=== PATIENT | female | born 1930 | race Caucasian/White ===

== ENCOUNTER 2016-07-26 09:11 | Inpatient (IN) | payer MEDICARE, OTHER ==
[~2016-07-26] VITALS: Ht 160 cm; Wt 57.3 kg
[~2016-07-26 09:11] MED LIST: ASPIRIN81 MG PO; ELIQUIS2.5 MG PO; FERROUS SULFAT325 MG PO; FISH OIL 1,0001 CA1 PO; GLUCOPHAGE850 MG PO; HUMULIN R100 U/ML SC; HYDROCODON-ACE1 EAC7 PO; HYDROCODONE-APA1 TAB PO; LOVENOX30 MG/0.3 SC; METOPROLOL TART50 MG PO; OMEPRAZOLE20 M1 PO; TENORMIN25 MG PO; ZOLOFT50 MG PO; [UNRECOGNIZED DRUG - OTHER]
[2016-07-26 10:16] LABS: BASOPHILS 0.5 % (0.0-2.0); EOSINOPHILS 2.9 % (0-7); HEMATOCRIT 35.1 % (36.0-48.0); HEMOGLOBIN 11.2 g/dL (12-16); IMMATURE GRANULOCYTES 2.8 % (0-5); MCH 29.2 pg (26.0-34.0); MCHC 31.9 g/dL (31.0-37.0); MCV 91.4 fL (80.0-100.0); MEAN PLATELET VOLUME 8.6 fL (7.4-10.4); MONOCYTES 8.8 % (2-11); RBC 3.84 10x6/uL (4.00-5.40); RDW 14.2 % (11.5-14.5); WBC 9.6 10x3/uL (4.8-10.8)
[2016-07-26 10:19] LABS: PLATELET COUNT 374 10x3/uL (130-400)
[2016-07-26 10:36] LABS: ANION GAP 13.6 mmol/L (8-16); CALCIUM 9.2 mg/dL (8.5-10.1); CARBON DIOXIDE 27.7 mmol/L (21.0-32.0); CREATININE - SERUM 0.9 mg/dL (0.6-1.3); POTASSIUM - SERUM 4.3 mmol/L (3.5-5.1)
[2016-07-26 10:41] VITALS: BP 118/64; BMI 22.3
[2016-07-26] MEDS ORDERED: BACTRIM DS TABL1 TAB PO (11:25)
[2016-07-26] MEDS ORDERED: INVANZ 1 GM/NS 11 G1 IV (11:26)
--- NOTE | 2016-07-26 11:40 | NUR ---
1130 REPORTED PATIENT TOOK ELIQUS LAST NIGHT AT 2000 PER NURSE AT [facility] AND [facility] YESTERDAY TO SURGERY CHRISTINE
--- NOTE | 2016-07-26 15:29 | NUR ---
VANCOMYCIN 1GM INFUSING.
--- NOTE | 2016-07-26 15:45 | NUR ---
PASHA FERMENTER WINE WAS CALLED FOR A BED. NO BEDS AVAILABLE, HE STATED TO RETURN TO OUTPATIENT.
--- NOTE | 2016-07-26 16:00 | NUR ---
1550- RECEIVED PT FROM OR [facility]ERY. PT TO BE ADMITTED UPON AVAILABILITY OF AN IN HOUSE BED. SHE IS SUPINE WITH HOB ELEVATED. EYES CLOSED, BUT RESPONDS TO VERBAL STIMULI- EXTREMELY HARD OF HEARING. RIGHT HIP WITH WOUND VAC, SUCTION FUNCTIONING, PLUGGED INTO WALL. VSS. LEFT ARM IV INFUSING. ADULT BREIF IN PLACE. 1600- HEELS BRIDGED WITH PILLOW, ICE TO RIGHT HIP AREA. LIQUIDS OFFERED. WILL MONITOR UNTIL TRANSFERRED TO INPATIENT BED.
[2016-07-26 16:05] VITALS: BP 151/72
[2016-07-26 17:00] VITALS: BP 134/60
--- NOTE | 2016-07-26 17:06 | NUR ---
1700- PLACED ON BED CASAS PER REQUEST. VOIDED WITHOUT DIFFICULTY.
--- NOTE | 2016-07-26 17:35 | NUR ---
REPORT GIVEN TO DURGA BARONE. PT SLEEPING WITHOUT ANY COMPLAINTS AT THIS TIME. VSS. DIABETIC DINNER TRAY ORDERED.
--- NOTE | 2016-07-26 18:26 | NUR ---
1800 RESTING ONLY TOOK IN A FEW SIPS OF [place] DIET. WOUND VAC TO RT HIP TO 125MM HG CONTINUOUS SUCTION NO AIR LEAKS. EYES CLOSED BUT ROUSES. TRAY SERVED.
--- NOTE | 2016-07-26 18:44 | NUR ---
1835 1/2 N/S GOING IV NO REDNESS OR SWELLING RESTING WITH EYES CLOSED MEREPENUM STILL INFUSING. RT HIP WOUND VAC TO 125MM HG CONTINUOUS SUCTION AND NO AIR LEAKS.
--- NOTE | 2016-07-26 19:40 | NUR ---
1935 RESTING WITH EYES CLOSED. NO S/S OF GRIMACING. REPORT TO MARI DENNEY R.N. TO ROOM VIA STRETCHER.
[2016-07-27] VITALS: BP 110/82
[2016-07-27 03:02] VITALS: BP 159/72; Ht 160 cm; Wt 57.3 kg
[2016-07-27 04:00] VITALS: BP 139/69
[2016-07-27 06:53] LABS: HEMATOCRIT 35.4 % (36.0-48.0); HEMOGLOBIN 11.2 g/dL (12-16); MCH 29.2 pg (26.0-34.0); MCHC 31.6 g/dL (31.0-37.0); MCV 92.4 fL (80.0-100.0); MEAN PLATELET VOLUME 8.8 fL (7.4-10.4); RBC 3.83 10x6/uL (4.00-5.40); RDW 14.6 % (11.5-14.5); WBC 8.6 10x3/uL (4.8-10.8)
--- NOTE | 2016-07-27 08:00 | NUR ---
PT ASSESSMENT COMPLETE AWAKE AND ALERT ORINETED X 2 VERY HARD OF HEARING NO ACUTE DISTRESS NTOED WOUND VAC NOTED TO RIGHT HIP WOUND SIZE DOCUMENTED PER OR TEAM 20CM x 4CM x 6CM DEEP REDNESS NOTED AROUND WOUND AREA GRAM STAIN WAS POSITIVE FOR STAPH AREUS NON METHECILLIN RESISTANT. DENIES PAIN. PT HAD VERY INCONT EPISODE FULL BED CHANGE AND LINNEN CHANGE PER THIS NURSE AND GOLF COURSE MANAGER BED BATH GIVEN AT THIS TIME NO REDNESS NOTED TO BUTTOCKS SKIN INTACT OTHER THAN SURGICAL WOUND LUNGS CLEAR BILATERALLY BOWEL SOUNDS ACTIVE X 4 QUADS. CALL LIGHT INREACH SIDE RAILS UP X 2
[2016-07-27 09:10] VITALS: BP 186/64
[2016-07-27 11:14] LABS: BASOPHILS 0.6 % (0.0-2.0); EOSINOPHILS 3.1 % (0-7); HEMATOCRIT 34.6 % (36.0-48.0); HEMOGLOBIN 10.6 g/dL (12-16); IMMATURE GRANULOCYTES 2.6 % (0-5); LYMPHOCYTES 20.5 % (15-50); MCH 28.4 pg (26.0-34.0); MCHC 30.6 g/dL (31.0-37.0); MCV 92.8 fL (80.0-100.0); MEAN PLATELET VOLUME 8.7 fL (7.4-10.4); MONOCYTES 5.4 % (2-11); NEUTROPHILS 67.8 % (40-80); PLATELET COUNT 421 10x3/uL (130-400); RBC 3.73 10x6/uL (4.00-5.40); RDW 14.4 % (11.5-14.5)
[2016-07-27 11:32] LABS: ANION GAP 11.9 mmol/L (8-16); C-REACTIVE PROTEIN 2.7 mg/dL (0.0-0.9); CALCIUM 8.9 mg/dL (8.5-10.1); CARBON DIOXIDE 28.6 mmol/L (21.0-32.0); CREATININE - SERUM 0.9 mg/dL (0.6-1.3); POTASSIUM - SERUM 4.5 mmol/L (3.5-5.1)
--- NOTE | 2016-07-27 12:19 | NUR ---
NO ACUTE DISTRESS NOTED HAS ORDER FOR WOUND VAC AND POSSIBLE DISCHARGE BACK TO [facility] TODAY WILL MONITOR CURRENTLY INFUSING VANCOMYCIN PER ORDER WILL CONTINUE TO OBSERVE
[2016-07-27 12:23] LABS: ERYTHROCYTE SEDIMENTATION RATE 27 mm/hr (0-30)
[2016-07-27 13:04] VITALS: BP 121/62
--- NOTE | 2016-07-27 13:53 | NUR ---
PATIENT WILL DISCHARGE TODAY BACK TO [facility] BY FACILITY KATHI. SONI AT [facility] IS GETTING WOUND VAC ORDERED FOR PATIENT. NIECE NOTIFIED.
--- NOTE | 2016-07-27 15:15 | NUR ---
REPORT CALLED TO [facility] SPOKE WITH MALDONADO RODRIGEZ LPN
--- NOTE | 2016-08-13 18:23 | OP ---
PATIENT NAME: KLEBER GONZALEZ MEDICAL RECORD: [id number] :34 LOCATION:[facility] [id number] ADMISSION DATE:07/26/16 SURGEON: CARRIE GONSALVES MD DATE OF OPERATION: 07/26/2016 Orthopedic Surgery Operative Note PREOPERATIVE DIAGNOSIS: Infected wound with dehiscence of the right hip. POSTOPERATIVE DIAGNOSIS: Infected wound with dehiscence of the right hip. PROCEDURES: 1. Excisional debridement of wound to include skin, subcutaneous tissue, portions of fat, fascia, muscle, not including bone greater than 20 cm. 2. Application of negative pressure device. SURGEON: Carrie Gonsalves MD ANESTHESIA: General. INTRAOPERATIVE COMPLICATIONS: None. SUMMARY OF PATHOLOGIC FINDINGS: The patient did have a wound dehiscence. This was cultured at the time of surgery. It did not go down past the vastus lateralis to the bone itself. OPERATIVE SUMMARY IN DETAIL: After obtaining the appropriate preoperative orthopedic surgery consent as well as anesthetic consultation, evaluation and clearance, the patient was brought to the operating room and placed on the operating table in supine position. After adequate general laryngeal mask airway was administered, the patient was placed in a left lateral decubitus position. All pressure points were well padded to include down leg peroneal pad as well as axillary roll. The patient was held firmly to the operating table using the vacuum pack suction system. The area of her hip was prepped and draped in a routine sterile fashion. At this point, the small punctiform wound was elongated, cultures were taken. The wound was elongated so that there was not any undermining and then excisional debridement was carried out using scalpel, rongeurs as well as curette. Copious irrigation was followed by placement of the wound VAC. The wound VAC was shaped, put into place and set at 125 mm of continuous suction on medium intensity. The patient was awakened, taken to recovery room in stable condition. All final needle and sponge counts were correct. TRANSINT:[id number] Voice Confirmation ID: [id number] DOCUMENT ID: [id number] CARRIE GONSALVES MD at 1823 CC: [id number] DICTATION DATE: 08/02/161427 ORACLE ADF DEVELOPER: 08/02/16 1438 DIS IN 07/27/16 [address] [address] [place] [address]
== END 2016-07-27 15:24 | disposition home or self-care (01) | DRG 858 ==
LOC: D.OPS 09:11 → D.MS 19:35 → D.OPS 19:36 → D.MS 07-27 15:24 → D.OPS 07-27 15:24 → D.MS 07-27 15:24
PROVIDERS: Anesthesiology; ADMIT Orthopaedic Surgery
PROC: 0JBL0ZZ Excision of Right Upper Leg Subcutaneous Tissue and Fascia, Open Approach (ICD-10-PCS; principal; 2016-07-26 10:30)
DX: T81.4XXA Infection following a procedure, initial encounter (principal); I10 Essential (primary) hypertension; F03.90 Unspecified dementia, unspecified severity, without behavioral disturbance, psychotic disturbance, mood disturbance, and anxiety; K21.9 Gastro-esophageal reflux disease without esophagitis; E11.9 Type 2 diabetes mellitus without complications; Z96.641 Presence of right artificial hip joint; H91.90 Unspecified hearing loss, unspecified ear; M54.9 Dorsalgia, unspecified; Z91.81 History of falling; Z87.891 Personal history of nicotine dependence

== ENCOUNTER → 2016-08-13 13:59 | Outpatient (CLI) | payer MEDICARE, OTHER ==
[2016-07-27 03:02] VITALS: BMI 22.3
[~2016-08-13 13:59] MED LIST changes: +BACTRIM DS TABL1 TAB PO; +INVANZ 1 GM/NS 11 G1 IV
== END | disposition home or self-care (01) ==
LOC: D.RAD 13:59
DX: M79.644 Pain in right finger(s) (principal)

== ENCOUNTER → 2016-09-06 14:00 | Outpatient (CLI) | payer MEDICARE, OTHER ==
[2016-07-27 03:02] VITALS: BMI 22.3
== END | disposition home or self-care (01) ==
LOC: D.RAD 14:00
DX: M25.561 Pain in right knee (principal)

== ENCOUNTER → 2016-12-08 15:28 | Outpatient (CLI) | payer MEDICARE, OTHER ==
[2016-07-27 03:02] VITALS: BMI 22.3
== END | disposition home or self-care (01) ==
LOC: D.LABREF 15:28
DX: T81.4XXA Infection following a procedure, initial encounter (principal); A49.02 Methicillin resistant Staphylococcus aureus infection, unspecified site; T81.89XA Other complications of procedures, not elsewhere classified, initial encounter

== ENCOUNTER → 2017-02-25 15:16 | Outpatient (CLI) | payer MEDICARE, OTHER ==
[2016-07-27 03:02] VITALS: BMI 22.3
== END | disposition home or self-care (01) ==
LOC: D.LABREF 15:16
DX: T81.4XXA Infection following a procedure, initial encounter (principal)

== ENCOUNTER 2017-11-17 19:18 | Inpatient (IN) | payer MEDICARE, OTHER ==
[~2017-11-17] VITALS: Ht 160 cm; Wt 50.5 kg
--- NOTE | ~2017-11-17 | DS ---
PATIENT:KLEBER GONZALEZ :34 MEDICAL RECORD: [id number] DISCHARGE SUMMARY ADMISSION DATE: 11/17/17 DISCHARGE DATE: 11/21/17 DATE OF ADMISSION: 11/17/2017. DATE OF DISCHARGE: 11/21/2017. ADMISSION DIAGNOSES: Urinary tract infection, early sepsis, dementia, diabetes mellitus, and hypertension. DISCHARGE DIAGNOSES: Urinary tract infection, dementia, diabetes mellitus, and hypertension. HOSPITAL COURSE: The patient was admitted through the Emergency Room from the [facility], [place], had an elevated white count of 15,300, white cells and bacteria in her urine. She was started on IV antibiotics, continued to improve. Urine grew out E. coli susceptible to the Levaquin she had been started on. The patient has remained afebrile, is back to her baseline. She has been switched to p.o. Levaquin, has remained afebrile for the past 24 hours. She is discharged back to the shelter in improved condition. PHYSICAL EXAMINATION: VITAL SIGNS ON DISCHARGE: Temperature 97.9, blood pressure 151/75, heart rate 80, respirations 18, O2 sat 98% on room air. HEART: Regular rate and rhythm. LUNGS: Clear. ABDOMEN: Soft. EXTREMITIES: Present times 4. NEUROLOGIC: Stable dementia, extremely deaf. LABORATORY DATA: CBC: WBC is 11.1, hemoglobin 11, hematocrit 33.9, platelets 323. The patient will follow up within the next 2 weeks as needed, has home health and care at [facility]. We will coordinate care with nursing at [facility]. TRANSINT:[id number] Voice Confirmation ID: [id number] DOCUMENT ID: [id number] CHERRY MONTERO DO at 0806 CC: [id number] DICTATION DATE: 11/21/17 0801 QUALITY PROJECT MANAGER: 11/22/17 0313 DIS IN 11/21/17 [id number] [place] [address]
--- NOTE | ~2017-11-17 | HP ---
PATIENT: KLEBER GONZALEZ MEDICAL RECORD: [id number] ACCOUNT: [id number] LOCATION:[facility] [id number] : 32 ADMISSION DATE: 11/17/17 HISTORY AND PHYSICAL EXAMINATION DATE OF ADMISSION: 11/17/2017 CHIEF COMPLAINT: Nausea and vomiting. HISTORY OF PRESENT ILLNESS: The patient is an 87-year-old female who [facility] in a [facility], apparently was sent via ambulance to the Emergency Room for nausea, vomiting, coughing up some clear phlegm. It was felt the patient warranted admission. PAST MEDICAL HISTORY: Significant that she has had diabetes mellitus. She has had a right femoral neck fracture. She has had dementia, hypertension, humeral shaft fracture times 2. She has had knee surgeries, hysterectomy. 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 FAMILY HISTORY: Mother of kidney disease in . Father had myocardial infarction, at 77. MEDICATIONS: Include aspirin 81 mg once a day, Eliquis 2.5 mg once a day, Lasix 20 mg daily, metformin 850 mg b.i.d., metoprolol 50 mg b.i.d., Prilosec 20 mg once a day, KCl 20 mEq once a day, sertraline 50 mg daily. ALLERGIES: No known drug allergies. SOCIAL HISTORY: The patient is single. She is educated through the 12th grade. She is retired. Denies any ethanol, tobacco use or abuse. She was born in [place], now resides in [place]. REVIEW OF SYSTEMS: CONSTITUTIONAL: The patient denies any headaches, seizure or syncope. Denies change in visual or auditory acuity. PULMONARY: She denies any shortness of breath, cough, congestion, history of TB, asthma or bronchitis. CARDIOVASCULAR: No chest pain, palpitation, PND or orthopnea. GASTROINTESTINAL: No chronic nausea, vomiting, melena or hematochezia. GENITOURINARY: No urgency, frequency, or dysuria. PHYSICAL EXAMINATION: GENERAL: In the Emergency Room, the patient is not oriented to time, place. VITAL SIGNS: Her temperature is 97.8, her pulse 90, respirations 20, blood pressure 175/90. She is alert. HEENT: Head is normocephalic. No lesions. Ears: TMs clear. Eyes: Pupils equal, round, reactive to light. Extraocular movements are intact. Her nasal cavity, oral cavity, oropharynx are clear. NECK: Supple. There is no adenopathy. HEART: Has a regular rate. LUNGS: Clear. LABORATORY DATA: White count is elevated at 15.3, hemoglobin 12.1, hematocrit 37.3, her platelets were 255. Sodium 131, potassium 4.5, chloride 99, CO2 is HISTORY AND PHYSICAL [id number] LISA,KLEBER 26, BUN 21, creatinine 0.9, blood sugar is 205. ProBNP is slightly elevated at 550. Amylase and lipase was normal. Urinalysis showed 50+ wbc's per high powered field. She had a chest x-ray. The chest x-ray shows no active infiltrates. The patient is a DNR. ASSESSMENT: Dementia, urinary tract infection, diabetes mellitus and hypertension. PLAN: We will continue all her current medications. She will be placed on Levaquin 500 mg IV q.24 hours. We will obtain blood culture as well as urine cultures. IV hydration, antiemetics. TRANSINT:[id number] Voice Confirmation ID: [id number] DOCUMENT ID: [id number] CARRIE TERRELL MD at 0644 CC: [id number] DICTATION DATE: 11/18/17714 MISSILE CONTROL PILOT: 11/18/17 0833 ADM IN [place] [id number] [place] [id number]
[2017-11-17 19:46] LABS: BASOPHILS 0.2 % (0-2); EOSINOPHILS 0.5 % (0-7); HEMATOCRIT 37.3 % (36.0-48.0); HEMOGLOBIN 12.1 g/dL (12-16); IMMATURE GRANULOCYTES 1.2 % (0-5); LYMPHOCYTES 11.5 % (15-50); MCH 28.7 pg (26.0-34.0); MCHC 32.4 g/dL (31.0-37.0); MCV 88.6 fL (80.0-100.0); MEAN PLATELET VOLUME 8.9 fL (7.4-10.4); MONOCYTES 8.3 % (2-11); NEUTROPHILS 78.3 % (40-80); RBC 4.21 10x6/uL (4.00-5.40); RDW 14.2 % (11.5-14.5); WBC 15.3 10x3/uL (4.8-10.8)
[2017-11-17 19:47] LABS: PLATELET COUNT 255 10x3/uL (130-400)
[2017-11-17 20:26] LABS: ALBUMIN 3.4 g/dL (3.4-5.0); ALKALINE PHOSPHATASE 87 U/L (46-116); ALT (SGPT) 17 U/L (10-68); CALC OSMOLALITY 271 mosm/kg (275-300); CALCIUM 9.4 mg/dL (8.5-10.1); CARBON DIOXIDE 26.1 mmol/L (21.0-32.0); CHLORIDE - SERUM 99 mmol/L (98-107); CREATININE - SERUM 0.9 mg/dL (0.6-1.3); GLUCOSE 205 mg/dL (74-106); POTASSIUM - SERUM 4.5 mmol/L (3.5-5.1); PROTEIN - SERUM 7.1 g/dL (6.4-8.2); SODIUM 131 mmol/L (136-145); UREA NITROGEN 21 mg/dL (7-18); eGFR NON AFRICAN AMERICAN 63 mL/min (90-120)
[2017-11-17 20:33] LABS: CREATINE KINASE 25 UL (21-215); LIPASE 107 U/L (73-393); PRO BNP 550 pg/mL (0-450); TROPONIN-I < 0.017 ng/mL (0.000-0.060)
[2017-11-17 20:44] LABS: APPEARANCE HAZY (CLEAR); BILIRUBIN NEGATIVE (NEGATIVE); COLOR YELLOW (YELLOW); GLUCOSE NEGATIVE (NEGATIVE); KETONE NEGATIVE (NEGATIVE); NITRITE POSITIVE (NEGATIVE); PROTEIN TRACE mg/dL (NEGATIVE); SPECIFIC GRAVITY 1.015 (1.005-1.020); UROBILINOGEN NORMAL (NORMAL)
[2017-11-17 20:56] LABS: BACTERIA MANY /hpf (NONE SEEN); EPITHELIAL CELLS RARE /hpf (0-5); WHITE CELLS - URINE >50 /hpf (0-5)
[2017-11-18 05:00] VITALS: BP 123/72
[2017-11-18 07:00] VITALS: BP 118/72
[2017-11-18 10:29] VITALS: Ht 160 cm; Wt 50.5 kg
[2017-11-18 12:00] VITALS: BP 98/66
[2017-11-18 17:14] VITALS: BP 131/74
[2017-11-18 20:36] VITALS: BP 105/60
[2017-11-19] VITALS: BP 116/62
[2017-11-19 04:46] LABS: BASOPHILS 0.2 % (0-2); EOSINOPHILS 0.8 % (0-7); HEMATOCRIT 35.5 % (36.0-48.0); HEMOGLOBIN 11.5 g/dL (12-16); IMMATURE GRANULOCYTES 1.7 % (0-5); LYMPHOCYTES 11.2 % (15-50); MCH 28.8 pg (26.0-34.0); MCHC 32.4 g/dL (31.0-37.0); MEAN PLATELET VOLUME 8.9 fL (7.4-10.4); MONOCYTES 6.7 % (2-11); NEUTROPHILS 79.4 % (40-80); PLATELET COUNT 279 10x3/uL (130-400); RBC 3.99 10x6/uL (4.00-5.40); WBC 13.3 10x3/uL (4.8-10.8)
[2017-11-19 05:01] LABS: ANION GAP 13.1 mmol/L (8-16); CALCIUM 9.5 mg/dL (8.5-10.1); CARBON DIOXIDE 29.4 mmol/L (21.0-32.0); CREATININE - SERUM 0.9 mg/dL (0.6-1.3); POTASSIUM - SERUM 4.5 mmol/L (3.5-5.1)
[2017-11-19 05:20] VITALS: BP 178/68
[2017-11-19 09:25] VITALS: BP 128/68
[2017-11-19 12:22] VITALS: BP 153/40
[2017-11-19 16:46] VITALS: BP 134/72
[2017-11-19 21:27] VITALS: BP 131/77
[2017-11-20 01:02] VITALS: BP 120/66
[2017-11-20 04:40] LABS: BASOPHILS 0.2 % (0-2); EOSINOPHILS 2.2 % (0-7); HEMATOCRIT 34.6 % (36.0-48.0); IMMATURE GRANULOCYTES 2.7 % (0-5); LYMPHOCYTES 17.9 % (15-50); MCH 28.2 pg (26.0-34.0); MCHC 31.8 g/dL (31.0-37.0); MCV 88.7 fL (80.0-100.0); MEAN PLATELET VOLUME 8.8 fL (7.4-10.4); MONOCYTES 8.8 % (2-11); NEUTROPHILS 68.2 % (40-80); PLATELET COUNT 293 10x3/uL (130-400); RDW 13.9 % (11.5-14.5)
[2017-11-20 04:47] LABS: WBC 9.9 10x3/uL (4.8-10.8)
[2017-11-20 04:52] LABS: CALC OSMOLALITY 279 mosm/kg (275-300); CALCIUM 9.2 mg/dL (8.5-10.1); CARBON DIOXIDE 27.3 mmol/L (21.0-32.0); CHLORIDE - SERUM 104 mmol/L (98-107); CREATININE - SERUM 0.7 mg/dL (0.6-1.3); GLUCOSE 87 mg/dL (74-106); POTASSIUM - SERUM 3.9 mmol/L (3.5-5.1); SODIUM 140 mmol/L (136-145); UREA NITROGEN 18 mg/dL (7-18); eGFR NON AFRICAN AMERICAN 84 mL/min (90-120)
[2017-11-20 05:37] VITALS: BP 133/80
[2017-11-20 09:15] VITALS: BP 87/66
[2017-11-20 14:29] VITALS: BP 106/59
[2017-11-20 16:21] VITALS: BP 103/69
[2017-11-20 21:32] VITALS: BP 132/72
[2017-11-21 01:03] VITALS: BP 151/75
[2017-11-21 05:31] LABS: BASOPHILS 0.4 % (0-2); EOSINOPHILS 2.3 % (0-7); HEMATOCRIT 33.9 % (36.0-48.0); IMMATURE GRANULOCYTES 3.2 % (0-5); LYMPHOCYTES 19.5 % (15-50); MCHC 32.4 g/dL (31.0-37.0); MCV 89.4 fL (80.0-100.0); MEAN PLATELET VOLUME 8.8 fL (7.4-10.4); MONOCYTES 8.9 % (2-11); NEUTROPHILS 65.7 % (40-80); PLATELET COUNT 323 10x3/uL (130-400); RBC 3.79 10x6/uL (4.00-5.40); WBC 11.1 10x3/uL (4.8-10.8)
[2017-11-21 05:46] LABS: ANION GAP 13.1 mmol/L (8-16); CALCIUM 8.8 mg/dL (8.5-10.1); CARBON DIOXIDE 27.7 mmol/L (21.0-32.0); CREATININE - SERUM 0.8 mg/dL (0.6-1.3); POTASSIUM - SERUM 3.8 mmol/L (3.5-5.1)
[2017-11-21] MEDS ORDERED: LEVAQUIN750 MG PO (07:55)
[2017-11-21] MEDS ORDERED: FLORAJEN3 CAPS460 MG PO (07:55)
[2017-11-21 08:13] VITALS: BP 155/78
== END 2017-11-21 12:42 | disposition home or self-care (01) | DRG 872 ==
LOC: D.ER 19:18 → D.M2 22:01
PROVIDERS: Family Medicine
DX: A41.9 Sepsis, unspecified organism (principal); N39.0 Urinary tract infection, site not specified; B96.20 Unspecified Escherichia coli [E. coli] as the cause of diseases classified elsewhere; Z16.24 Resistance to multiple antibiotics; E11.9 Type 2 diabetes mellitus without complications; I10 Essential (primary) hypertension; M06.9 Rheumatoid arthritis, unspecified; F03.90 Unspecified dementia, unspecified severity, without behavioral disturbance, psychotic disturbance, mood disturbance, and anxiety

== ENCOUNTER 2018-07-31 11:50 | Day surgery (SDC) | payer MEDICARE, OTHER ==
[~2018-07-31] VITALS: Ht 162.6 cm; Wt 53.5 kg
[~2018-07-31 11:50] MED LIST changes: +BACTROBAN NASAL1 GM TOPICAL; +CLARITIN 10 MG10 MG; +DOXYCYCLINE HY100 M2 PO; +ELIQUIS2.5 MG; +FLORAJEN3 CAPS460 MG PO; +FUROSEMIDE20 MG PO; +GLUCOPHAGE500 MG PO; +IMODIUM2 MG; +LEVAQUIN750 MG PO; +POTASSIUM CHLO20 MEQ PO; +PROBIOTIC1 EAC1; +ZOFRAN4 MG PO
[2018-07-31 12:33] LABS: BASOPHILS 0.6 % (0-2); EOSINOPHILS 2.9 % (0-7); HEMOGLOBIN 12.7 g/dL (12-16); IMMATURE GRANULOCYTES 0.4 % (0-5); LYMPHOCYTES 32.4 % (15-50); MCH 28.8 pg (26.0-34.0); MCHC 32.6 g/dL (31.0-37.0); MCV 88.4 fL (80.0-100.0); MEAN PLATELET VOLUME 9.1 fL (7.4-10.4); MONOCYTES 8.7 % (2-11); RBC 4.41 10x6/uL (4.00-5.40); RDW 14.8 % (11.5-14.5); WBC 7.1 10x3/uL (4.8-10.8)
[2018-07-31 12:40] LABS: ANION GAP 11.4 mmol/L (8-16); CALCIUM 9.5 mg/dL (8.5-10.1); CARBON DIOXIDE 31.9 mmol/L (21.0-32.0); CREATININE - SERUM 0.9 mg/dL (0.6-1.3); POTASSIUM - SERUM 4.3 mmol/L (3.5-5.1)
[2018-07-31 12:41] LABS: INR 1.06 (0.85-1.17); PROTIME 13.3 SECONDS (11.6-15.0)
[2018-07-31 12:44] LABS: PLATELET COUNT 233 10x3/uL (130-400)
[2018-07-31 14:52] VITALS: BP 113/68; Ht 162.6 cm; Wt 53.5 kg
[2018-07-31 20:20] VITALS: BP 140/80
[2018-07-31 23:33] VITALS: BP 139/87
--- NOTE | 2018-08-01 00:18 | NUR ---
PT IS SUN-DOWNING. EXTREMELY LUMMI. PERIODIC PERIPHERAL PULSE CHECKS GOOD. WOUND VAC ON RT HIP. BREATHING EVEN AND UNLABORED. WILL CONTINUE POC.
[2018-08-01 04:05] VITALS: BP 148/83
--- NOTE | 2018-08-01 04:25 | NUR ---
OBSERVED PT TRYING TO GET OOB. WILL PUT MARK ALARM ON THIS AM. WILL CONTINUE POC.
--- NOTE | 2018-08-01 07:16 | MORECARE ---
CASE MANAGEMENT DISCHARGE SUMMARY PATIENT: KLEBER GONZALEZ UNIT: [id number] ADM DATE: 07/31/18 AGE: 88 : 32 SEX: F ROOM/BED: D.2234 AUTHOR: MIRTA MORALES PHYSICIAN: REFERRING PHYSICIAN: CARRIE GONSALVES MD DATE OF SERVICE: 08/01/18 Discharge Plan Patient Name: KLEBER GONZALEZ [facility] [facility] 1930 Planned Disposition: Anticipated Discharge Date: Discharge Date: Expected LOS: 0 Initial Reviewer: [email or web address] Initial Review Date: 08/01/2018 Generated: 08/01/18 8:16 am Patient Name: KLEBER GONZALEZ Page [id number] at 0716 All edits/amendments must be made on the electronic document DICTATION DATE: 08/01/18715 SHEARER SCREEN MEASURER AND TRIMMER: MARIA ISABEL 08/01/18715 RPT#: [id number] DC DATE: STATUS: REG [facility] [address] [place] [address] END OF REPORT
--- NOTE | 2018-08-01 08:30 | NUR ---
PT LAYING IN BED RESTING, SMILING, MOOD PLEASANT. RESPIRATIONS EVEN AND UNLABORED, NO S/S OF DISTRESS NOTED. PT MENTASTA, USING PENCIL AND PAPER TO COMMUNICATE IN ROOM. PT HAS GENERALIZED WEAKNESS, AND PT HAS GIVEN PERMISSION TO PIVOT PT, BUT SHE'S NOT ABLE TO AMBULATE TO THE BATHROOM. WOUND VAC TO RIGHT HIP, DRAINING. BED LOW AND LOCKED, SR UP X2, CL IN EASY REACH. DENIES FURTHER NEEDS.
[2018-08-01 08:51] VITALS: BP 131/71
[2018-08-01] MEDS ORDERED: HYDROCODON-ACE1 EAC7 PO (09:02)
--- NOTE | 2018-08-01 09:06 | MORECARE ---
CASE MANAGEMENT DISCHARGE SUMMARY PATIENT: KLEBER GONZALEZ UNIT: [id number] ADM DATE: 07/31/18 AGE: 88 : 32 SEX: F ROOM/BED: D.2234 AUTHOR: MIRTA MORALES PHYSICIAN: REFERRING PHYSICIAN: CARRIE GONSALVES MD DATE OF SERVICE: 08/01/18 Discharge Plan Patient Name: KLEBER GONZALEZ [facility] [facility] 1930 Planned Disposition: Anticipated Discharge Date: Discharge Date: Expected LOS: 0 Initial Reviewer: [email or web address] Initial Review Date: 08/01/2018 Generated: 08/01/18 10:06 am External Providers External Provider: [email or web address] [employer] Next Contact Date: Service Request Date: Service Type: Resolution: Reviewer: Comments: Last DP export: 08/01/18 6:16 a Patient Name: KLEBER GONZALEZ Page [phone] at 0906 All edits/amendments must be made on the electronic document DICTATION DATE: 08/01/18904 SECURITY ALARM INSTALLER: MARIA ISABEL 08/01/18904 RPT#: [id number] ID DATE: STATUS: REG [facility] [address] [place] [address] END OF REPORT
--- NOTE | 2018-08-01 09:52 | MORECARE ---
CASE MANAGEMENT DISCHARGE SUMMARY PATIENT: KLEBER GONZALEZ UNIT: [id number] ADM DATE: 07/31/18 AGE: 88 : 32 SEX: F ROOM/BED: D.2234 AUTHOR: MIRTA MORALES PHYSICIAN: REFERRING PHYSICIAN: CARRIE GONSALVES MD DATE OF SERVICE: 08/01/18 Discharge Plan Patient Name: KLEBER GONZALEZ [facility] [facility] 1930 Planned Disposition: Assisted Living Anticipated Discharge Date: 08/01/18 Discharge Date: Expected LOS: 1 Initial Reviewer: [email or web address] Initial Review Date: 08/01/2018 Generated: 08/01/18 10:52 am Comments DCP- Discharge Planning Updated by [id number]: Savanah Renteria on 08/01/18 8:[address] Wound Vac ordered through [facility] and clinical faxed. Message sent to [facility]mer[facility]. Spoke with Marilou at [facility]. She will check with registered account administrator to see if she can come with a wound vac and return my call. I called patient's niece, Susan states she would like her mother to return to [place] with [facility] (she is current with [facility]). States [place] will pick her up at discharge. I called and spoke with Adore with [facility] and they will resume care when discharged. CM will continue to follow and assist with discharge planning/needs. Last DP export: 08/01/18 8:06 a Patient Name: KLEBER GONZALEZ Page [phone] at 0952 All edits/amendments must be made on the electronic document DICTATION DATE: 08/01/18951 FBI PROFILER: MARIA ISABEL 08/01/18951 RPT#: [id number] DC DATE: STATUS: REG [facility] [address] [place] [address] END OF REPORT
--- NOTE | 2018-08-01 09:59 | MORECARE ---
CASE MANAGEMENT DISCHARGE SUMMARY PATIENT: KLEBER GONZALEZ UNIT: [id number] ADM DATE: 07/31/18 AGE: 88 : 32 SEX: F ROOM/BED: D.2234 AUTHOR: CARMEN,DOC PHYSICIAN: REFERRING PHYSICIAN: CARRIE GONSALVES MD DATE OF SERVICE: 08/01/18 Discharge Plan Patient Name: KLEBER GONZALEZ Facility: [facility]:[place] : 1930 Planned Disposition: Assisted Living Anticipated Discharge Date: 08/01/18 Discharge Date: Expected LOS: 1 Initial Reviewer: [email or web address] Initial Review Date: 08/01/2018 Generated: 08/01/18 10:59 am Comments DCP- Discharge Planning Updated by [email or web address]: Savanah Renteria on 08/01/18 8:[address] Wound Vac ordered through [facility] and clinical faxed. Message sent to Omero. Spoke with Marilou at [facility]. She will check with security systems administrator to see if she can come with a wound vac and return my call. I called patient's niece, Susan states she would like her mother to return to [place] with [facility] (she is current with Care ). States [place] will pick her up at discharge. I called and spoke with Adore with [facility] and they will resume care when discharged. CM will continue to follow and assist with discharge planning/needs. DCPIA - Discharge Planning Initial Assessment Updated by [email or web address]: Savanah Renteria on 08/01/18 9:55 am * Is the patient Alert and Oriented? Yes * How many steps to enter\exit or inside your home? 0/0 * PCP Dr. Carty * Pharmacy [facility] * Preadmission Environment Assisted Living * Facility Name [facility] * ADLs Partial Dependent * Partial ADLs (Assistance needed) Ambulation Bathing Dressing Medication Management * Equipment Wheelchair * List name and contact numbers for known caregivers / representatives who currently or will assist patient after discharge: Susan funes - [phone] * Verbal permission to speak to the caregivers and representatives has been obtained from the patient. Yes * Community resources currently utilized Assisted Living Home Health * Please name any agencies selected above. [address] * Additional services required to return to the preadmission environment? Yes * Can the patient safely return to the preadmission environment? Yes * Has this patient been hospitalized within the prior 30 days at any hospital? No Last DP export: 08/01/18 8:52 a Patient Name: KLEBER GONZALEZ Page [phone] at 0959 All edits/amendments must be made on the electronic document DICTATION DATE: 08/01/18958 AUTOMOTIVE CENTER MANAGER: MARIA ISABEL 08/01/18958 RPT#: [id number] DC DATE: STATUS: REG [facility] [address] [place] [address] END OF REPORT
[2018-08-01 10:40] LABS: HEMATOCRIT 35.6 % (36.0-48.0); HEMOGLOBIN 11.6 g/dL (12-16); MCH 28.6 pg (26.0-34.0); MCHC 32.6 g/dL (31.0-37.0); MCV 87.9 fL (80.0-100.0); MEAN PLATELET VOLUME 9.5 fL (7.4-10.4); RBC 4.05 10x6/uL (4.00-5.40); RDW 14.4 % (11.5-14.5); WBC 8.4 10x3/uL (4.8-10.8)
--- NOTE | 2018-08-01 11:05 | MORECARE ---
CASE MANAGEMENT DISCHARGE SUMMARY PATIENT: KLEBER GONZALEZ UNIT: [id number] ADM DATE: 07/31/18 AGE: 88 : 32 SEX: F ROOM/BED: D.2234 AUTHOR: CARMEN,DOC PHYSICIAN: REFERRING PHYSICIAN: CARRIE GONSALVES MD DATE OF SERVICE: 08/01/18 Discharge Plan Patient Name: KLEBER GONZALEZ Facility: [facility]:[place] : 1930 Planned Disposition: Assisted Living Anticipated Discharge Date: 08/01/18 Discharge Date: Expected LOS: 1 Initial Reviewer: [email or web address] Initial Review Date: 08/01/2018 Generated: 08/01/18 12:05 pm Comments DCP- Discharge Planning Updated by [email or web address]: Savanahsveta Renteria on 08/01/18 8:[address] Wound Vac ordered through [facility] and clinical faxed. Message sent to Omero. Spoke with Marilou at [facility]. She will check with senior linux unix administrator to see if she can come with a wound vac and return my call. I called patient's niece, Susan states she would like her mother to return to [place] with [facility] (she is current with [facility]). States [place] will pick her up at discharge. I called and spoke with Adore with [facility] and they will resume care when discharged. CM will continue to follow and assist with discharge planning/needs. DCPIA - Discharge Planning Initial Assessment Updated by [email or web address]: Savanah Renteria on 08/01/18 9:55 am * Is the patient Alert and Oriented? Yes * How many steps to enter\exit or inside your home? 0/0 * PCP Dr. Carty * Pharmacy [facility] * Preadmission Environment Assisted Living * Facility Name [facility] * ADLs Partial Dependent * Partial ADLs (Assistance needed) Ambulation Bathing Dressing Medication Management * Equipment Wheelchair * List name and contact numbers for known caregivers / representatives who currently or will assist patient after discharge: Susan funes - [phone] * Verbal permission to speak to the caregivers and representatives has been obtained from the patient. Yes * Community resources currently utilized Assisted Living Home Health * Please name any agencies selected above. [facility] * Additional services required to return to the preadmission environment? Yes * Can the patient safely return to the preadmission environment? Yes * Has this patient been hospitalized within the prior 30 days at any hospital? No External Providers External Provider: OTHER-OTHER Next Contact Date: Service Request Date: Service Type: Resolution: Reviewer: Comments: Last DP export: 08/01/18 8:59 a Patient Name: KLEBER GONZALEZ Page [phone] at 1105 All edits/amendments must be made on the electronic document DICTATION DATE: 08/01/18 110 GERIATRIC NURSE PRACTITIONER: MARIA ISABEL 08/01/18 1105 RPT#: [id number] DC DATE: STATUS: REG [facility] [address] [place] [address] END OF REPORT
--- NOTE | 2018-08-01 11:13 | MORECARE ---
CASE MANAGEMENT DISCHARGE SUMMARY PATIENT: KLEBER GONZALEZ UNIT: [id number] ADM DATE: 07/31/18 AGE: 88 : 32 SEX: F ROOM/BED: D.2234 AUTHOR: CARMEN,DOC PHYSICIAN: REFERRING PHYSICIAN: CARRIE GONSALVES MD DATE OF SERVICE: 08/01/18 Discharge Plan Patient Name: KLEBER GONZALEZ Facility: [facility]:[place] : 1930 Planned Disposition: Assisted Living Anticipated Discharge Date: 08/01/18 Discharge Date: Expected LOS: 1 Initial Reviewer: [email or web address] Initial Review Date: 08/01/2018 Generated: 08/01/18 12:13 pm Comments DCP- Discharge Planning Updated by [email or web address]: Savanah Renteria on 08/01/18 10:[address] I called Marilou back at [place] to follow up on possible discharge there today with wound vac. She states her department administrator was supposed to call me but had told her ok with home health. I informed her that they had [facility] in place. Wound Vac RX faxed to Dr. Gonsalves's office [phone]. CM will continue to follow and assist with discharge planning/needs. DCP- Discharge Planning Updated by [email or web address]: Savanah Renteria on 08/01/18 8:[address] Wound Vac ordered through [facility] and clinical faxed. [facility] Spoke with Marilou at [facility]. She will check with department administrator to see if she can come with a wound vac and return my call. I called patient's niece, Susan states she would like her mother to return to [place] with [facility] (she is current with [facility]). States [place] will pick her up at discharge. I called and spoke with Adore with [facility] and they will resume care when discharged. CM will continue to follow and assist with discharge planning/needs. DCPIA - Discharge Planning Initial Assessment Updated by [email or web address]: Savanah Renteria on 08/01/18 9:55 am * Is the patient Alert and Oriented? Yes * How many steps to enter\exit or inside your home? 0/0 * PCP Dr. Carty * Pharmacy [facility] * Preadmission Environment Assisted Living * Facility Name [facility] * ADLs Partial Dependent * Partial ADLs (Assistance needed) Ambulation Bathing Dressing Medication Management * Equipment Wheelchair * List name and contact numbers for known caregivers / representatives who currently or will assist patient after discharge: Susan funes - [phone] * Verbal permission to speak to the caregivers and representatives has been obtained from the patient. Yes * Community resources currently utilized Assisted Living Home Health * Please name any agencies selected above. [address] * Additional services required to return to the preadmission environment? Yes * Can the patient safely return to the preadmission environment? Yes * Has this patient been hospitalized within the prior 30 days at any hospital? No Last DP export: 08/01/18 10:05 a Patient Name: KLEBER GONZALEZ Page [phone] at 1113 All edits/amendments must be made on the electronic document DICTATION DATE: 08/01/181112 WEBSPHERE MESSAGE BROKER DEVELOPER: MARIA ISABEL 08/01/181112 RPT#: [id number] DC DATE: STATUS: REG [facility] [address] [place] [address] END OF REPORT
[2018-08-01 13:37] VITALS: BP 112/58
--- NOTE | 2018-08-01 13:54 | MORECARE ---
CASE MANAGEMENT DISCHARGE SUMMARY PATIENT: KLEBER GONZALEZ UNIT: [id number] ADM DATE: 07/31/18 AGE: 88 : 34 SEX: F ROOM/BED: D.2234 AUTHOR: CARMEN,DOC PHYSICIAN: REFERRING PHYSICIAN: CARRIE GONSALVES MD DATE OF SERVICE: 08/01/18 Discharge Plan Patient Name: KLEBER GONZALEZ Facility: [facility]:[place] : 1930 Planned Disposition: Assisted Living Anticipated Discharge Date: 08/01/18 Discharge Date: Expected LOS: 1 Initial Reviewer: [email or web address] Initial Review Date: 08/01/2018 Generated: 08/01/18 2:54 pm Comments DCP- Discharge Planning Updated by [email or web address]: Savanah Renteria on 08/01/18 10:[address] I called Marilou back at [place] to follow up on possible discharge there today with wound vac. She states her wide area network administrator was supposed to call me but had told her ok with home health. I informed her that they had [facility] in place. Wound Vac RX faxed to Dr. Gonsalves's office [phone]. CM will continue to follow and assist with discharge planning/needs. DCP- Discharge Planning Updated by [email or web address]: Savanah Renteria on 08/01/18 8:[address] Wound Vac ordered through [facility] and clinical faxed. [facility] Spoke with Marilou at [facility]. She will check with wide area network administrator to see if she can come with a wound vac and return my call. I called patient's niece, Susan states she would like her mother to return to [place] with [facility] (she is current with [facility]). States [place] will pick her up at discharge. I called and spoke with Adore with [facility] and they will resume care when discharged. CM will continue to follow and assist with discharge planning/needs. DCPIA - Discharge Planning Initial Assessment Updated by [email or web address]: Savanah Renteria on 08/01/18 9:55 am * Is the patient Alert and Oriented? Yes * How many steps to enter\exit or inside your home? 0/0 * PCP Dr. Carty * Pharmacy [facility] * Preadmission Environment Assisted Living * Facility Name [facility] * ADLs Partial Dependent * Partial ADLs (Assistance needed) Ambulation Bathing Dressing Medication Management * Equipment Wheelchair * List name and contact numbers for known caregivers / representatives who currently or will assist patient after discharge: Susan funes - [phone] * Verbal permission to speak to the caregivers and representatives has been obtained from the patient. Yes * Community resources currently utilized Assisted Living Home Health * Please name any agencies selected above. [facility] * Additional services required to return to the preadmission environment? Yes * Can the patient safely return to the preadmission environment? Yes * Has this patient been hospitalized within the prior 30 days at any hospital? No External Providers External Provider: [facility] Next Contact Date: Service Request Date: Service Type: Resolution: Reviewer: Comments: Last DP export: 08/01/18 10:13 a Patient Name: KLEBER GONZALEZ Page [id number] at 1354 All edits/amendments must be made on the electronic document DICTATION DATE: 08/01/18 1354 OIL WELL SERVICE OPERATOR: MARIA ISABEL 08/01/18 1354 RPT#: [id number] MT DATE: STATUS: REG [facility] [address] [place] [address] END OF REPORT
--- NOTE | 2018-08-01 14:03 | MORECARE ---
CASE MANAGEMENT DISCHARGE SUMMARY PATIENT: KLEBER GONZALEZ UNIT: [id number] ADM DATE: 07/31/18 AGE: 88 : 32 SEX: F ROOM/BED: D.2234 AUTHOR: CARMEN,DOC PHYSICIAN: REFERRING PHYSICIAN: CARRIE GONSALVES MD DATE OF SERVICE: 08/01/18 Discharge Plan Patient Name: KLEBER GONZALEZ Facility: [facility]:[place] : 1930 Planned Disposition: Assisted Living Anticipated Discharge Date: 08/01/18 Discharge Date: Expected LOS: 1 Initial Reviewer: [email or web address] Initial Review Date: 08/01/2018 Generated: 08/01/18 3:03 pm Comments DCP- Discharge Planning Updated by [id number]: Savanah Starkjann on 08/01/18 1:[address] [facility] order printed and given to shantel, she signed. She understands copay. She states she will call to make sure they have her secondary. I called Shanice in [employer] she is to deliver the wound vac. I informed Natanael that wound vac needs changed to home wound vac. I called Qamar with [facility] and he states they will pick her up at 2:30. Natanael, inventory coordinator and shantel informed. I spoke with Merrick with [facility] and informed of DC today, clinical faxed. Returning to [place] via their van. DCP- Discharge Planning Updated by [email or web address]: Savanah Myra on 08/01/18 10:[address] I called Marilou back at [place] to follow up on possible discharge there today with wound vac. She states her testing projects administrator was supposed to call me but had told her ok with home health. I informed her that they had [facility] in place. Wound Vac RX faxed to Dr. Gonsalves's office [phone]. CM will continue to follow and assist with discharge planning/needs. DCP- Discharge Planning Updated by [id number]: Savanah Starkjann on 08/01/18 8:[address] Wound Vac ordered through [facility] and clinical faxed. Message sent to [facility]. Spoke with Marilou at [facility]. She will check with testing projects administrator to see if she can come with a wound vac and return my call. I called patient's niece, Susan states she would like her mother to return to [place] with [address] (she is current with [facility]). States [place] will pick her up at discharge. I called and spoke with Adore with [facility] and they will resume care when discharged. CM will continue to follow and assist with discharge planning/needs. DCPIA - Discharge Planning Initial Assessment Updated by [email or web address]: Savanah Renteria on 08/01/18 9:55 am * Is the patient Alert and Oriented? Yes * How many steps to enter\exit or inside your home? 0/0 * PCP Dr. Carty * Pharmacy [facility] * Preadmission Environment Assisted Living * Facility Name [facility] * ADLs Partial Dependent * Partial ADLs (Assistance needed) Ambulation Bathing Dressing Medication Management * Equipment Wheelchair * List name and contact numbers for known caregivers / representatives who currently or will assist patient after discharge: Susan Jackson - shantel - [phone] * Verbal permission to speak to the caregivers and representatives has been obtained from the patient. Yes * Community resources currently utilized Assisted Living Home Health * Please name any agencies selected above. [address] * Additional services required to return to the preadmission environment? Yes * Can the patient safely return to the preadmission environment? Yes * Has this patient been hospitalized within the prior 30 days at any hospital? No Last DP export: 08/01/18 12:54 p Patient Name: KLEBER GONZALEZ Page [id number] at 1403 All edits/amendments must be made on the electronic document DICTATION DATE: 08/01/181401 COUNTY HEALTH OFFICER: MARIA ISABEL 08/01/18 140 RPT#: [id number] DC DATE: STATUS: REG [facility] [address] [place] [address] END OF REPORT
--- NOTE | 2018-08-01 15:19 | NUR ---
PT DISCHARGE INFORMATION GONE OVER WITH PT AND FAMILY. FAMILY AND PT VERBALIZED UNDERSTANDING AND SIGNED. PT DISCHARGE EDUCATION PROVIDED UPON DISCHARGE. DENIES FURTHER NEEDS. PT GIVEN A SET OF PAPER SCRUBS TO GO HOME WITH. PT SENT HOME WITH WOUND VAC THAT WAS ORDERED FOR PT. DENIES FURTHER NEEDS. IV REMOVED, TIP INTACT. PT DISCHARGED AT 1520.
--- NOTE | 2018-08-08 14:30 | OP ---
PATIENT NAME: KLEBER GONZALEZ MEDICAL RECORD: [id number] :34 [facility] AD[facility]ION DATE: SURGEON: CARRIE GONSALVES MD DATE OF OPERATION: 07/31/2018 PREOPERATIVE DIAGNOSIS: Chronic lateral hip wound. POSTOPERATIVE DIAGNOSIS: Chronic lateral hip wound. PROCEDURE: Excisional debridement of chronic hip wound to include skin, subcutaneous tissue, portions of fat, fascia, and muscle. Wound VAC application. SURGEON: Carrie Gonsalves MD ANESTHESIA: General. INTRAOPERATIVE COMPLICATIONS: None. SUMMARY OF PATHOLOGIC FINDINGS: The patient was found to have deep abscesses about 2, that is proximal and distal wound, large #5 Ethibond sutures. This did not track in any way, shape, fashion, or form. Total measurements were 6 x 1 x 1. Wound VAC was applied. OPERATIVE SUMMARY IN DETAIL: After obtaining the appropriate preoperative orthopedic surgery consent as well as anesthetic consultation, evaluation and clearance, the patient was brought to the operating room and placed on the operating table in supine position. After adequate general laryngeal mask airway was administered, the patient was placed in a left lateral decubitus position. All pressure points were padded to include down leg peroneal pad as well as axillary roll. The patient was held firmly to the operating table using the vacuum pack suction system. The area of the right hip was prepped and draped in a routine sterile fashion. Upon immediate exploration, 2 large infectious-appearing Ethibond sutures were found. They were removed. Cultures were taken at this time. Combination of scalpel curettage as well as a sharp rongeur debridement were utilized to clean all these areas back to a healthy wound base. Good bleeding was achieved. Copious irrigation was then followed by application of a wound VAC cut to fit the patient's incision, which was set at 125 mm of continuous suction at medium intensity. The patient was then awakened and taken to recovery room in stable condition. All final needle and sponge counts were correct. TRANSINT:[id number] Voice Confirmation ID: [id number] DOCUMENT ID: [id number] CARRIE GONSALVES MD at 1430 CC: [id number] DICTATION DATE: 08/08/18 1129 RELAY TELEGRAPHER: 08/08/18 1413 [facility] 08/01/18 [place] [phone]
== END 2018-08-01 15:20 ==
LOC: D.MS 11:50 → D.OPS 11:50 → D.PAN 12:25 → D.OPS 14:30 → D.MS 18:30 → D.OPS 08-01 15:20
PROVIDERS: Anesthesiology; Orthopaedic Surgery
DX: S71.002A Unspecified open wound, left hip, initial encounter (principal); T81.49XA Infection following a procedure, other surgical site, initial encounter

== ENCOUNTER → 2018-10-01 13:45 | Outpatient (CLI) | payer MEDICARE, OTHER | END | disposition home or self-care (01) | LOC: D.CT 13:45 | PROVIDERS: ATTEND Family Medicine | DX: R06.02 Shortness of breath (principal); R91.8 Other nonspecific abnormal finding of lung field ==

== ENCOUNTER 2020-04-11 13:55 | Emergency (ER) | payer MEDICARE, OTHER ==
[~2020-04-11] VITALS: Ht 162.6 cm; Wt 61.4 kg
[2020-04-11 14:01] VITALS: Ht 162.6 cm; Wt 61.4 kg
[2020-04-11] MEDS ORDERED: ZOLOFT25 MG PO (14:09)
[2020-04-11 17:29] LABS: BASOPHILS 0.6 % (0-2); EOSINOPHILS 5.3 % (0-7); HEMATOCRIT 37.4 % (36.0-48.0); HEMOGLOBIN 11.4 g/dL (12-16); IMMATURE GRANULOCYTES 0.4 % (0-5); LYMPHOCYTES 38.2 % (15-50); MCH 27.9 pg (26.0-34.0); MCHC 30.5 g/dL (31.0-37.0); MCV 91.4 fL (80.0-100.0); MONOCYTES 10.6 % (2-11); NEUTROPHILS 44.9 % (40-80); PLATELET COUNT 236 10x3/uL (130-400); RBC 4.09 10x6/uL (4.00-5.40); RDW 14.2 % (11.5-14.5); WBC 5.3 10x3/uL (4.8-10.8)
[2020-04-11 17:37] LABS: ANION GAP 8.1 mmol/L (8-16); CALCIUM 9.2 mg/dL (8.5-10.1); CARBON DIOXIDE 33.1 mmol/L (21.0-32.0); CREATININE - SERUM 1.3 mg/dL (0.6-1.3); POTASSIUM - SERUM 4.2 mmol/L (3.5-5.1)
[2020-04-11 17:43] LABS: ALBUMIN 3.4 g/dL (3.4-5.0); BILIRUBIN - TOTAL 0.22 mg/dL (0.2-1.3)
[2020-04-11 20:19] VITALS: BP 158/76
== END 2020-04-11 20:20 | disposition home or self-care (01) ==
LOC: D.ER 13:55
PROVIDERS: Emergency Medicine
DX: M54.5 Low back pain (principal); W05.0XXA Fall from non-moving wheelchair, initial encounter; Y93.9 Activity, unspecified; Y92.9 Unspecified place or not applicable; E11.9 Type 2 diabetes mellitus without complications; I10 Essential (primary) hypertension; Z79.84 Long term (current) use of oral hypoglycemic drugs